=== PATIENT | male | born 1950 | race Caucasian/White ===

== ENCOUNTER 2019-09-07 22:01 | Observation (INO) ==
[2019-09-07] MEDS ORDERED: Isovue-370 500 ML BOTTLE IVP ONE (22:31)
[2019-09-07 22:33] LABS: Basophils % 0.5 %; Eosinophils # 0.2 K/mcL (0.0-0.6); Eosinophils % 2.5 %; Hematocrit 37.5 % (37.5-50.1); Hemoglobin 12.6 g/dL (12.9-16.9); Immature Granulocytes % 0.4 % (0-4); Lymphocytes # 1.1 K/mcL (0.6-4.6); Lymphocytes % 12.9 %; Mean Corpuscular HGB Conc 33.6 g/dL (31.6-35.5); Mean Corpuscular Hemoglobin 27.9 pg (28.0-33.3); Mean Platelet Volume 9.7 fL (9.4-12.4); Monocytes % 11.1 %; Neutrophils # 6.2 K/mcL (1.6-8.9); Platelet Count 314 K/mcL (140-400); Red Blood Count 4.52 M/mcL (4.19-5.50); Red Cell Distribution Width 15.7 % (11.5-14.5); Segmented Neutrophils % 72.6 %; White Blood Count 8.5 K/mcL (4.3-11.1)
[2019-09-07 22:45] LABS: BUN/Creatinine Ratio 22 (6-26); Blood Urea Nitrogen 24 mg/dL (8-23); Calcium 9.2 mg/dL (8.6-10.3); Carbon Dioxide 21 mEq/L (23-29); Chloride 106 mEq/L (98-107); Glucose 97 mg/dL (70-105); Osmolality,Calculated 286 (280-300); Potassium 3.8 mEq/L (3.5-5.1); Sodium 136 mEq/L (136-145); eGFR For African Americans > 60 (> 60); eGFR For Non-African Americans > 60 (> 60)
[2019-09-07 22:46] LABS: Troponin I 0.03 ng/mL (< 0.04)
[2019-09-08] MEDS ORDERED: Aspirin 81 MG TAB.CHEW PO STA (00:22)
[2019-09-08] MEDS ORDERED: Nitroglycerin 0.4 MG TAB.SUBL SL ONE (00:27)
[2019-09-08] MEDS: Nitroglycerin 0.4 MG TAB.SUBL SL SCH ×3 (00:30→01:51)
[2019-09-08 00:55] LABS: Bilirubin,Urine Negative (Negative); Blood,Urine Negative (Negative); Clarity,Urine Cloudy (Clear); Color,Urine Yellow (Yellow); Glucose,Urine (UA) Normal (Normal); Ketones,Urine Negative (Negative); Leukocyte Esterase,Urine Large (Negative); Nitrite,Urine Negative (Negative); PH,Urine 7.5 pH Units (5.0-8.0); Protein,Urine Negative (Neg-Trace); Specific Gravity,Urine > 1.030 (1.010-1.025); Urobilinogen,Urine Normal (Normal)
[2019-09-08 00:58] LABS: Bacteria,Urine Few per hpf (None-Few); Hyaline Casts,Urine None Seen per lpf (None-Few); RBC,Urine 0-3 per hpf (0-3); Squamous Epithelial Cell,Urine Few per lpf (None-Few); WBC,Urine TNTC per hpf (0-3)
[2019-09-08] MEDS ORDERED: Nitroglycerin 0.4 MG TAB.SUBL SL PRN (01:24)
[2019-09-08 02:55] LABS: BUN/Creatinine Ratio 21 (6-26); Blood Urea Nitrogen 22 mg/dL (8-23); Calcium 8.6 mg/dL (8.6-10.3); Carbon Dioxide 19 mEq/L (23-29); Chloride 106 mEq/L (98-107); Chol/HDL Ratio 4.7 (0-4.9); Cholesterol 159 mg/dL (< 200); Glucose 96 mg/dL (70-105); HDL Cholesterol 34 mg/dL (40-59); LDL Cholesterol,Calculated 107 mg/dL (0-99); Osmolality,Calculated 283 (280-300); Potassium 3.5 mEq/L (3.5-5.1); Sodium 135 mEq/L (136-145); Triglycerides 89 mg/dL (< 150); Troponin I 0.03 ng/mL (< 0.04); eGFR For African Americans > 60 (> 60); eGFR For Non-African Americans > 60 (> 60)
[2019-09-08] MEDS ORDERED: Acetaminophen 325 MG TABLET PO ONE (03:01)
[2019-09-08 03:05] LABS: Basophils # 0.1 K/mcL (0.0-0.2); Basophils % 0.7 %; Eosinophils # 0.2 K/mcL (0.0-0.6); Eosinophils % 2.2 %; Hematocrit 35.8 % (37.5-50.1); Hemoglobin 11.3 g/dL (12.9-16.9); Immature Granulocytes % 0.4 % (0-4); Lymphocytes # 1.1 K/mcL (0.6-4.6); Lymphocytes % 12.6 %; Mean Corpuscular HGB Conc 31.6 g/dL (31.6-35.5); Mean Corpuscular Hemoglobin 27.4 pg (28.0-33.3); Mean Corpuscular Volume 86.7 fL (83.0-100.0); Mean Platelet Volume 10.4 fL (9.4-12.4); Neutrophils # 6.6 K/mcL (1.6-8.9); Platelet Count 288 K/mcL (140-400); Red Blood Count 4.13 M/mcL (4.19-5.50); Red Cell Distribution Width 15.9 % (11.5-14.5); Segmented Neutrophils % 73.1 %; White Blood Count 9.1 K/mcL (4.3-11.1)
[2019-09-08] MEDS ORDERED: *HR* Heparin 5,000 UNIT/ML VIAL SQ SCH (06:00)
[2019-09-08] MEDS ORDERED: Regadenoson 0.4 MG/5 ML SYRINGE IVP ONE (06:19)
[2019-09-08 08:34] LABS: Estimated Average Glucose 117 mg/dl
[2019-09-08] MEDS ORDERED: Perflutren Lipid Microsphere 1.3 ML in 0.9 % Sodium Chloride 8.7 ML IVP ONE (08:50)
[2019-09-08] MEDS ORDERED: BuPROPion SR (12 HR) 150 MG TABLET PO SCH (09:00)
[2019-09-08] MEDS ORDERED: hydroCHLOROthiazide 25 MG TABLET PO SCH (09:00)
[2019-09-08 11:14] VITALS: BP 124/69
== END 2019-09-08 14:53 | disposition home or self-care (01) ==
LOC: 3BNU 22:01 → EMEROOARM 22:01 → SUATTDRO 09-08 00:27 → 3BNU 09-08 00:49
PROVIDERS: ADMIT Internal Medicine; ATTEND Internal Medicine